=== PATIENT | male | born 1960 | race African-American/Black ===

== ENCOUNTER 2016-03-17 14:40 | Emergency (ER) | payer OTHER ==
[~2016-03-17] VITALS: Ht 5.1 cm; Wt 120.5 kg
[2016-03-17 14:44] VITALS: BP 134/87; PULSE 65; RESP 20; O2SAT 99
[2016-03-17 15:17] LABS: BASOPHILS % (AUTO) 0.2 % (0-3); EOSINOPHILS % (AUTO) 2.3 % (0-5); MONOCYTES % (AUTO) 5.7 % (4-12); Mean Corpuscular Hemoglobin 30.3 pg (27.0-35.0); Mean Corpuscular Volume 89.3 fL (81-100); NEUTROPHILS % (AUTO) 47.1 % (40-74); Platelet Count 247 bil/L (150-400)
[2016-03-17 16:37] VITALS: BP 134/87; PULSE 65; RESP 20; O2SAT 99
[2016-03-17 17:12] LABS: APPEARANCE,URINE CLEAR (CLEAR,HAZY); COLOR,URINE STRAW (YELLOW); OCCULT BLOOD,URINE TRACE (NEGATIVE); PH,URINE 7.5 (5.0-8.0)
[2016-03-17 17:13] LABS: UROBILINOGEN,URINE NORMAL (NORMAL)
--- NOTE | 2016-03-17 17:25 | ED.REPORT ---
HPI-Back Pain 40 and Over Date of Service Mar 17, 2016 ED Provider: Myrtle Harper History of Present Illness: problems for the last 6 months,flank pain comes and goes sometimes on the right and sometimes on the left. the last 30 days worse. urologist is yue in [place], plan was for a CT next Thursday. chills for a few days. primary care kwo at [facility] 2014 dx with kidney cancer, removed a portion of the kidney on the right side urinating visible blood since 06/2015. last scan done in 06/2015 clear at that time. 09/25. meditation or taking oxycodone is what he does for the pain. 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 Denies: Asthma Past Surgical History partial kidney removal 2014 in [place] Smoking History Former Smoker (smoking cigars) Social History Alcohol Use: 1-3 per week Drug Use: Denies drug use Other Social History: Occupation in the formerly [employer] Ambulatory Status Independent Review of Systems Basic Review of Systems Eyes: Vision NL, No discharge ENT: Hearing NL, No pain, No nasal congestion, No pharyngeal pain Hematologic: No bleeding, No bruising Endocrine: No cold intolerance, No heat intolerance, No weight gain, No weight loss Skin: No bruising, No rash, No itch Allergy / Immune: No allergy Psychiatric: Normal thought content Physical Exam Initial Vital Signs Vital Signs (First) Date Time Temp Pulse Resp B/P Pulse Ox O2 Delivery O2 Flow Rate FiO2 03/17/16 14:44 37.3 65 20 134/87 99 Room Air Initial VS: Reviewed, Vital signs normal Head / Eyes: Atraumatic, Normocephalic, PERRL ENT: Mucous membranes moist, Conjunctiva normal, No scleral icterus Neck: Supple, Non-tender, Full range of motion Lymphatic: No lymphadenopathy Extremities: Vascular intact, Neuro intact, No swelling, No tenderness Skin: Warm, Dry, No cyanosis Psychiatric: Mood/affect normal, Behavior normal, Normal thought content General/Constitutional: Awake, Alert, No acute distress Respiratory / Chest: Atraumatic, Breath sounds NL, Breath sounds = bilat, No respiratory distress Cardiovascular: Heart rate NL, Regular rhythm, Heart sounds NL Abdomen: Atraumatic, Soft, Non-tender, McBurney's non-tender lower flank pain Neurologic: Oriented X3, Speech NL, No motor deficits Interpretation & Diagnostics Interpretation & Diagnostics: INDICATIONS: right flank pain, hematuria, hc of r clear cell ca TECHNIQUE: Noncontrast 5 mm thick sections acquired from the diaphragms to the symphysis. 5 mm thick coronal and sagittal reformats were then performed. For radiation dose reduction, the following was used: automated exposure control, adjustment of mA and/or kV according to patient size. COMPARISON: None. FINDINGS: Image quality: Excellent. Lung bases: Lung bases are clear. Heart size is normal. Small hiatal hernia. Urinary system: There are small calcific foci in the posterior cortex of the right kidney with associated renal cortical scar. Subtle perinephric stranding the right kidney. No hydronephrosis. Both kidneys are normal in size. Both ureters appear non-dilated throughout their expected courses. Bladder wall thickness is normal; no calcified bladder stones. Other solid organs: Liver and spleen are normal in size. Gallbladder is normal. Pancreas is normal in contours. No adrenal nodules. Peritoneum and bowel: Unenhanced bowel loops demonstrate normal wall thickness and caliber. There are scattered colonic diverticula in descending and sigmoid colon. No evidence for active diverticulitis. Normal appendix. No free fluid or air. Nodes and vessels: No retroperitoneal or mesenteric adenopathy by size criteria. Aorta and inferior vena cava are normal in caliber. Abdominal wall: No ventral hernias. Pelvis: No free pelvic fluid. No inguinal hernias or adenopathy. Bones: No suspicious bony lesions. No vertebral body compression fractures. There is degenerative disc disease and facet arthropathy in lumbar spine. A lucency in the left iliac bone adjacent to the celiac trunk with sclerotic border is likely a geode. IMPRESSION: 1. Right renal cortical scarring and cortical calcification. No obstructive renal stones. 2. Diverticulosis. No active diverticulitis. 3. Small hiatal hernia. 4. Degenerative disc disease and facet arthropathy in lumbar spine. Dictated by: Preeti Guan M.D. on 03/17/2016 at 18:08 Approved by: Preeti Guan M.D. on 03/17/2016 at 18:14 Lab Results Interpretation Result Diagram: 03/17/16 1503 03/17/16 1503 Test 03/17/16 15:03 03/17/16 17:01 White Blood Count 4.4th/mm3 (3.8-10.1) Red Blood Count 4.68mil/mm3 (4.40-5.80) Hemoglobin 14.2g/dL (13.8-17.2) Hematocrit 41.8% (41.0-50.0) Mean Corpuscular Volume 89.3fL (81-100) Mean Corpuscular Hemoglobin 30.3pg (27.0-35.0) Mean Corpuscular Hemoglobin Concent 34.0% (32.0-37.0) Red Cell Distribution Width 12.5% (12.3-15.4) Platelet Count 247bil/L (150-400) Neutrophils (%) (Auto) 47.1% (40-74) Lymphocytes (%) (Auto) 44.5% (14-46) Monocytes (%) (Auto) 5.7% (4-12) Eosinophils (%) (Auto) 2.3% (0-5) Basophils (%) (Auto) 0.2% (0-3) Sodium Level 139mEq/L (134-144) Potassium Level 4.7mEq/L (3.5-5.2) Chloride Level 100mEq/L (97-108) Carbon Dioxide Level 29mmol/L (18-29) Blood Urea Nitrogen 5mg/dL (6-24) Creatinine 1.08mg/dL (0.76-1.27) Estimat Glomerular Filtration Rate 76mL/min (>59) Glucose Level 102mg/dL (60-99) Calcium Level 9.1mg/dL (8.5-10.1) Magnesium Level 2.0mg/dL (1.6-2.6) Total Bilirubin 0.4mg/dL (0.0-1.2) Aspartate Amino Transf (AST/SGOT) 26U/L (0-50) Alanine Aminotransferase (ALT/SGPT) 26U/L (0-44) Alkaline Phosphatase 72U/L (25-150) Total Protein 7.0g/dL (6.4-8.4) Albumin 4.3g/dL (3.4-5.0) Hold Moses Top Tube Received (Received) Urine Color Straw (YELLOW) Urine Appearance Clear (CLEAR,HAZY) Urine pH 7.5 (5.0-8.0) Urine Specific [place] 1.020 (1.003-1.035) Urine Protein Negativemg/dL (NEG,TRACE) Urine Glucose (UA) Negativemg/dL (NEGATIVE) Urine Ketones Negativemg/dL (NEGATIVE) Urine Occult Blood Trace (NEGATIVE) Urine Nitrite Negative (NEGATIVE) Urine Bilirubin Negative (NEGATIVE) Urine Urobilinogen Normalmg/dL (NORMAL) Urine Leukocyte Esterase Negative (NEGATIVE) Urine RBC 0-2/hpf (0-2) Urine WBC 0-5/hpf (0-5) Urine Epithelial Cells None/hpf (NONE-MOD) Urine Crystals None seen (NONE SEEN) Urine Bacteria None/hpf (NONE-FEW) Urine Hyaline Casts None/lpf (NONE) Urine Granular Casts None seen (NONE SEEN) Urine Waxy Casts None seen (NONE SEEN) Urine Red Blood Cell Casts None seen (NONE SEEN) Urine White Blood Cell Casts None seen (NONE SEEN) Urine Mucus None seen (None Seen) Urine Trichomonas None seen (NONE SEEN) Urine Yeast None (NONE SEEN) Urinalysis Comment None Urine Culture Reflexed Not indicated Lab Results Interpretation: urine is negative but is being cultured Re-Eval/Medical Decision Med Decision/Clinical Course patient reporting excellent pain relief with toradol. Stressed importance of keeping urology appointment Discharge & Departure Impression: Primary Impression: Flank pain Additional Impression: Hematuria Disposition: Home Additional Instructions: You have been provided a copy of the CT results. According to the radiologist a geode is a cyst, likely related to arthritis. You had a good response to the ketorolac. You are being provided a prescription for ketorolac. Take 1 up to 4 times a day as needed for pain. Your labs and urine are normal. The urine is being cultured. The pain may also be related to muscle. Try ice 15 minutes on and 15 minutes on. Please keep the appointment with your urologist next week. Stay healthy. Referrals: [facility]ST[facility] LLOYD BA (PCP) EDSupervising Provider for APC: Hilton Mccarthy DO copies to: [facility],Myrtle Rosenthal BA Mar 17, 2016 17:25
--- NOTE | 2016-03-17 18:16 | DRSVH ---
PROCEDURE: CT KUB ([id number]) INDICATIONS: right flank pain, hematuria, hc of r clear cell ca TECHNIQUE: Noncontrast 5 mm thick sections acquired from the diaphragms to the symphysis. 5 mm thick coronal an d sagittal reformats were then performed. For radiation dose reduction, the following was used: aut omated exposure control, adjustment of mA and/or kV according to patient size. COMPARISON: None. FINDINGS: Image quality: Excellent. Lung bases: Lung bases are clear. Heart size is normal. Small hiatal hernia. Urinary system: There are small calcific foci in the posterior cortex of the right kidney with assoc iated renal cortical scar. Subtle perinephric stranding the right kidney. No hydronephrosis. Both kid neys are normal in size. Both ureters appear non-dilated throughout their expected courses. Bladder wall thickness is normal; no calcified bladder stones. Other solid organs: Liver and spleen are normal in size. Gallbladder is normal. Pancreas is normal in contours. No adrenal nodules. Peritoneum and bowel: Unenhanced bowel loops demonstrate normal wall thickness and caliber. There a re scattered colonic diverticula in descending and sigmoid colon. No evidence for active diverticulit is. Normal appendix. No free fluid or air. Nodes and vessels: No retroperitoneal or mesenteric adenopathy by size criteria. Aorta and inferior vena cava are normal in caliber. Abdominal wall: No ventral hernias. Pelvis: No free pelvic fluid. No inguinal hernias or adenopathy. Bones: No suspicious bony lesions. No vertebral body compression fractures. There is degenerative disc disease and facet arthropathy in lumbar spine. A lucency in the left iliac bone adjacent to the celiac trunk with sclerotic border is likely a geode. IMPRESSION: 1. Right renal cortical scarring and cortical calcification. No obstructive renal stones. 2. Diverticulosis. No active diverticulitis. 3. Small hiatal hernia. 4. Degenerative disc disease and facet arthropathy in lumbar spine. Dictated by: Preeti Guan M.D. on 03/17/2016 at 18:08 Approved by: Preeti Guan M.D. on 03/17/2016 at 18:14
[2016-03-17 19:22] VITALS: BP 111/75; PULSE 67; RESP 18; O2SAT 99
== END 2016-03-17 19:22 | disposition home or self-care (01) ==
LOC: SED 14:40
DX: R10.31 Right lower quadrant pain (principal); R31.9 Hematuria, unspecified; Z90.5 Acquired absence of kidney; Z85.528 Personal history of other malignant neoplasm of kidney; Z87.891 Personal history of nicotine dependence; Z91.041 Radiographic dye allergy status